=== PATIENT | male | born 1975 ===

== ENCOUNTER 2016-08-03 08:30 | Day surgery (SDC) | payer BC ==
[2016-08-03 10:16] VITALS: O2SAT 100
[2016-08-03] MEDS ORDERED: Lactated Ringer's 500 ML IV ONE ×2 (12:47)
[2016-08-03] MEDS ORDERED: Propofol 10 mg/ml Inj (20 ML) ONE (12:47)
[2016-08-03 13:31] VITALS: TEMP 98
[2016-08-03 13:32] VITALS: RESP 16
[2016-08-03 13:59] VITALS: BP 117/79; PULSE 61
== END 2016-08-03 13:55 | disposition home or self-care (01) ==
LOC: C.ENDO 08:30
PROVIDERS: ATTEND Internal Medicine Gastroenterology
DX: K29.50 Unspecified chronic gastritis without bleeding (principal); R10.13 Epigastric pain; K44.9 Diaphragmatic hernia without obstruction or gangrene; K29.80 Duodenitis without bleeding
CPT/HCPCS: 43239; 88305; J2704; J7120